=== PATIENT | female | born 1990 | race Caucasian/White ===

== ENCOUNTER 2017-09-08 19:47 | Emergency (ER) | payer MEDICAID ==
[2017-09-08 20:28] VITALS: RESP 18
--- NOTE | 2017-09-08 20:49 | ED PDOC ---
Arrival/HPI - General Chief Complaint: ENT Problem Time Seen by Provider: 09/08/17 20:42 Historian: Patient - History of Present Illness Narrative History of Present Illness (Text): 09/08/17 20:51 26yr old female presents today with left ear pain since yesterday. pt c/o severe pain to left ear. denies decreased hearing. no cp or sob. no dental pain. pt c/o pain to left jaw. denies fever/chills. pt states she took motrin yesterday without improvement. no other complaints. Symptom Onset: Gradual Symptom Course: Worsening Quality: Throbbing Severity Level: 10 Past Medical History - Provider Review Nursing Documentation Reviewed: Yes - Travel History Have you recently traveled outside [place] w/in the past 3 mons?: No - Infectious Disease Hx of Infectious Diseases: None - Reproductive Menopause: No - Psychiatric Hx Substance Use: No Family/Social History - Physician Review Nursing Documentation Reviewed: Yes Family/Social History: Unknown Family HX Smoking Status: Unknown If Ever Smoked Hx Alcohol Use: No Hx Substance Use: No Allergies/Home Meds Allergies/Adverse Reactions: Allergies No Known Allergies Allergy (Verified 09/08/17 20:42) Review of Systems - Review of Systems Constitutional: absent: Fatigue, Fevers ENT: Other (left ear pain). absent: Sore Throat, Sinus Congestion Respiratory: absent: SOB, Cough Cardiovascular: absent: Chest Pain, Palpitations Gastrointestinal: absent: Abdominal Pain, Nausea, Vomiting Skin: absent: Rash Neurological: absent: Headache, Dizziness Psychiatric: absent: Anxiety, Depression Physical Exam Vital Signs Reviewed: Yes Vital Signs Temp Pulse Resp BP Pulse Ox 09/08/17 20:04 99.7 F H 81 18 143/87 100 09/08/17 19:48 99.7 F H 81 18 143/87 100 Temperature: Afebrile Blood Pressure: Normal Pulse: Regular Respiratory Rate: Normal Appearance: Positive for: Well-Appearing, Non-Toxic, Comfortable Pain Distress: None Mental Status: Positive for: Alert and Oriented X 3 - Systems Exam Head: Present: Atraumatic Extroacular Muscles: Present: EOMI Conjunctiva: Present: Normal Ears: Present: Erythema (left TM erythema and erythema and edema noted to left ear canal. ), Other (no mastoid tenderness or erythema.). No: NORMAL TM, Normal Canal, TM Perf Mouth: Present: Moist Mucous Membranes. No: Drooling, Trismus Pharnyx: Present: Normal. No: ERYTHEMA, EXUDATE Nose (External): Present: Atraumatic Nose (Internal): Present: Normal Inspection Neck: Present: Normal Range of Motion, Trachea Midline. No: Lymphadenopathy Respiratory/Chest: Present: Clear to Auscultation, Good Air Exchange. No: Respiratory Distress, Accessory Muscle Use Cardiovascular: Present: Regular Rate and Rhythm, Normal S1, S2. No: Murmurs Neurological: Present: GCS=15 Skin: Present: Warm, Dry, Normal Color. No: Rashes Psychiatric: Present: Alert, Oriented x 3 Medical Decision Making ED Course and Treatment: 09/08/17 20:58 Patient is nontoxic well appearing in no distress. Vital signs are stable toradol amoxicillin po I advised follow up with primary care physician and ENT specialist within the next 2 days, advised to increase fluids take medications as prescribed and return if symptoms worsen persist or if new symptoms develop. Patient verbalizes understanding of discharge instructions and need for immediate followup. IMPRESSION; otitis media. otitis externa Motrin every 6 hours as needed for pain/fever reduction Increase fluids Amoxicillin 3 times daily x 10 days Cortisporin otic; 4 drops to affected ear 4 times daily. Follow up primary care physician within the next 2 days Follow up with the ENT specialist within the next 2 days. Return if symptoms worsen persist or if the symptoms develop - Medication Orders Current Medication Orders: Amoxicillin (Amoxil 500 Mg Cap) 500 mg PO STAT STA PRN Reason: Protocol Stop: 09/08/17 20:45 Ketorolac Tromethamine (Toradol) 60 mg IM STAT STA Stop: 09/08/17 20:45 Disposition/Present on Arrival - Present on Arrival Any Indicators Present on Arrival: No History of DVT/PE: No History of Uncontrolled Diabetes: No Urinary Catheter: No History of Decub. Ulcer: No History Surgical Site Infection Following: None - Disposition Have Diagnosis and Disposition been Completed?: Yes Diagnosis: Otitis media, Otitis externa Disposition: HOME/ ROUTINE Disposition Time: 21:02 Patient Plan: Discharge Condition: GOOD Discharge Instructions (ExitCare): Otitis Media (ED), Otitis Externa (ED) Additional Instructions: Motrin every 6 hours as needed for pain/fever reduction Increase fluids Amoxicillin 3 times daily x 10 days Cortisporin otic; 4 drops to affected ear 4 times daily. Follow up primary care physician within the next 2 days Follow up with the ENT specialist within the next 2 days. Return if symptoms worsen persist or if the symptoms develop Prescriptions: Amoxicillin 500 mg PO TID #30 tab Ibuprofen [Motrin] 600 mg PO Q6H PRN #20 tab PRN Reason: pain/fever reduction Neomycin/Polymyxin/Hydrocortis [Cortisporin Otic Susp] 4 drop QID #1 bottle Referrals: Serenity Trevizo MD [Primary Care Provider] - Follow up with primary Cristino Patel DO [[facility]] - Follow up with primary Forms: [facility] (Polish), WORK NOTE
[2017-09-08 21:40] VITALS: BP 128/72; PULSE 76; TEMP 98.7; O2SAT 98
== END 2017-09-08 21:41 | disposition home or self-care (01) ==
LOC: ED 19:47
DX: H66.92 Otitis media, unspecified, left ear (principal); H60.92 Unspecified otitis externa, left ear
CPT/HCPCS: 96372; 99283; J1885